=== PATIENT | female | born 1990 ===

== ENCOUNTER 2018-05-09 09:29 | Outpatient (CLI) | payer MEDICAID | END 2018-05-09 09:30 | disposition home or self-care (01) | LOC: C.LAB 09:29 | DX: Z34.92 Encounter for supervision of normal pregnancy, unspecified, second trimester (principal) ==

== ENCOUNTER 2018-07-04 12:19 | Outpatient (CLI) | payer MEDICAID | END 2018-07-04 12:20 | disposition home or self-care (01) | LOC: C.LAB 12:19 | DX: Z34.93 Encounter for supervision of normal pregnancy, unspecified, third trimester (principal) ==

== ENCOUNTER 2018-08-14 14:52 | Inpatient (IN) | payer MEDICAID ==
[2018-08-14 19:12] VITALS: BMI 34.3
--- NOTE | 2018-08-14 20:04 | OBHP ---
Datetime: 08/14/2018 19:40 IP Adm Impression: Postterm, intrauterine ; No Active Labor; Intact Membranes IP Admit Plan: Initiate labor induction protocol Pelvic Type - PN: Adequate Extremities - PN: Normal Abdomen - PN: Normal Back - PN: Normal Breast - PN: Not Done Lungs - PN: Normal Heart - PN: Normal Thyroid - PN: Normal Neurologic - PN: Normal HEENT - PN: Normal General - PN: Normal IP Hx Assessment: The History has been Reviewed and is Current EGA AdmitDate IP: 40.6 Vital Signs Provider: Reviewed IP Chief Complaint: Scheduled induction of labor Genitourinary Exam: Normal DTRs - PN: Normal
[2018-08-14] MEDS ORDERED: Lactated Ringer's 1,000 ML IV ONE (20:05)
[2018-08-14 20:40] LABS: BASO % 0.3 % (0.0-2.0); EOS # 0.1 K/uL (0.0-0.7); EOS % 0.9 % (0.0-4.0); HEMOGLOBIN 11.7 g/dL (11.0-16.0); LYMPH # 2.9 K/uL (1.0-4.3); MEAN CELL VOLUME 90.6 fL (81.0-99.0); MEAN CORPUSCULAR HEMOGLOBIN 29.5 pg (27.0-31.0); MEAN CORPUSCULAR HGB CONC 32.6 g/dL (33.0-37.0); MONO # 0.6 K/uL (0.0-0.8); MONO % 5.5 % (0.0-10.0); NEUT # 7.9 K/uL (1.8-7.0); NEUT % 68.3 % (50.0-75.0); NRBC % 0.1 % (0.0-2.0); RBC 3.95 Mil/uL (3.80-5.20); RED CELL DISTRIBUTION WIDTH 13.4 % (11.5-14.5); WHITE BLOOD COUNT 11.5 K/uL (4.8-10.8)
[2018-08-14 20:44] LABS: SQUAMOUS EPITHIAL 4 /hpf (0-5); URINE BILIRUBIN NEGATIVE (NEGATIVE); URINE BLOOD NEGATIVE (NEGATIVE); URINE CLARITY Hazy (Clear); URINE COLOR Yellow (YELLOW); URINE GLUCOSE (UA) NORMAL (Normal); URINE LEUKOCYTE ESTERASE NEG Leu/uL (Negative); URINE PROTEIN NEGATIVE (NEGATIVE); URINE UROBILINOGEN NORMAL mg/dL (0.2-1.0)
[2018-08-14 20:53] LABS: ALB/GLOB RATIO 1.2 (1.0-2.1); ALBUMIN 3.6 g/dL (3.5-5.0); ALT/SGPT 46 U/L (9-52); AST/SGOT 35 U/L (14-36); BLOOD UREA NITROGEN 5 mg/dL (7-17); CALCIUM 9.5 mg/dl (8.6-10.4); GFR NON-AFRICAN AMERICAN > 60
--- NOTE | 2018-08-14 20:58 | OBADHP ---
Datetime: 08/14/2018 19:40 Admit Comment, IP Provider: 18 yo female G1 with an IUP at 40.6 weeks and admitted for IOL for postd ates. Admits to adequate FM and denies LOF, VB or VD. Denies any problems. Pt states that s he had an US today for EFW and was told that EFW was 8lbs, 7oz. Report not available. PMHx: Denies PSHx: Denies Meds: PNV NKDA Social Hx: Denies x 3 PE: As noted above A/P 1. Postdates 2. Admitted for IOL 3. GBS Negative 4. Suspect Macrosomia 5. NST Reactive 6. Not in labor 7. Will admit for IOL 8. Orders written 9. Hope for a vaginal delivery 10. Discussed pain control with Epidural and all of their questions answered to their full satisfa ction. Pelvic Type - PN: Adequate Extremities - PN: Normal Abdomen - PN: Normal Back - PN: Normal Breast - PN: Not Done Lungs - PN: Normal Heart - PN: Normal Thyroid - PN: Normal Neurologic - PN: Normal HEENT - PN: Normal General - PN: Normal Presentation-Admit: Vertex FHR - Baseline A Provider: 130 Membranes, Provider: Intact Contraction Comments Provider: Ocassional Gestation - Est Wks by US: 40.6 IP Hx Assessment: The History has been Reviewed and is Current Vital Signs Provider: Reviewed; Within Normal Limits IP Chief Complaint: Scheduled induction of labor NICHD Variability Prov Fetus A: Moderate 6-25bpm NICHD Accel Fetus A IP Provider: 10X10 FHR Category Provider Fetus A: Category I NICHD Decel Fetus A IP Provider: None Dilatation, Provider: 1 Effacement, Provider: 50 Station, Provider: -3 Genitourinary Exam: Normal DTRs - PN: Normal EGA AdmitDate IP: 40.6 IP Adm Impression: Postterm, intrauterine ; No Active Labor; Intact Membranes IP Admit Plan: Admit to unit; Initiate labor induction protocol
[2018-08-15] MEDS: Lactated Ringer's 1,000 ML IV SCH ×2 (05:00→05:29)
--- NOTE | 2018-08-15 09:45 | OBPN ---
Datetime: 08/15/2018 09:12 IP Progress Impression: Reassuring heart rate IP Informed Consent Obtain: Vaginal Delivery IP Procedures: Sterile Vag Exam IP Progress Plan: Induction; Anticipate Vaginal Delivery Membranes, Provider: Ruptured Contraction Comments Provider: Irregular FHR - Baseline A Provider: 130 Gestation - Est Wks by US: 41.0 Presentation-Admit: Vertex IP Progress Note Comment: Pt seen and examined tracing reassuring VSS, Afebrile Cervidil removed Pt requesting to be able to walk, shower and eat/Orders done Admitting labs WNL/ O+ Will start Pitocin Anticipate a vaginal delivery Requesting an Epidural when in a lot of pain Vital Signs Provider: Reviewed; Within Normal Limits NICHD Accel Fetus A IP Provider: 10X10 FHR Category Provider Fetus A: Category I NICHD Variability Prov Fetus A: Moderate 6-25bpm Dilatation, Provider: 2 Effacement, Provider: 70 Station, Provider: -3 NICHD Decel Fetus A IP Provider: None
[2018-08-15] MEDS ORDERED: Oxytocin 30 UNIT in NS 500 ml 30 UNITS/500 ML BAG IV SCH (10:30)
[2018-08-15] MEDS ORDERED: Oxytocin 30 UNIT in NS 500 ml 30 UNITS/500 ML BAG IV ONE (10:45)
[2018-08-15] MEDS ORDERED: Fentanyl/Bupivacaine HCl 250 ML EPI ONE (11:01)
[2018-08-15] MEDS ORDERED: Oxytocin 20 units in LR 2,000 ML IV ONE (15:46)
[2018-08-15] MEDS ORDERED: Sodium Citrate/Citric Acid 15 ml Sol ONE (15:46)
[2018-08-15] MEDS ORDERED: Lactated Ringer's 1,000 ML IV ONE (15:47)
[2018-08-15] MEDS ORDERED: Sodium Citrate/Citric Acid 15 ml Sol PO ONE (15:47)
[2018-08-15] MEDS ORDERED: cefOXitin IV 2 gm in Dextrose 2 GM/50 ML BAG IVPB ONE (16:00)
--- NOTE | 2018-08-15 16:09 | OBPN ---
Datetime: 08/15/2018 14:00 IP Progress Impression Other: Variable Deccelerations IP Progress Impression: Arrest of dilatation/descent IP Informed Consent Obtain: Vaginal Delivery IP Procedures: Intrauterine Pressure Catheter; Scalp Electrode; Sterile Vag Exam; Sterile Spec ulum Exam IP Progress Plan: Continue present management; Induction; Anticipate Vaginal Delivery Membranes, Provider: Ruptured Amniotic Fluid Color, Provider: Clear Contraction Comments Provider: Q 3-4 mins FHR - Baseline A Provider: 130 Gestation - Est Wks by US: 41.0 Presentation-Admit: Vertex IP Progress Note Comment: Pt seen and examined Spontaneous ROM with clear fluid IUPC, ISL placed with ease Uterine contractions Q 3-4 with Pitocin at 8 mU/min Minimal cervical change but no descent Will continue Present Management for now Pt and Her aware of possible need for CS delivery since we are dealing with most likely Fe savanna Macrosomia and they verbalized understanding Vital Signs Provider: Reviewed; Within Normal Limits NICHD Accel Fetus A IP Provider: 10X10 NICHD Variability Prov Fetus A: Moderate 6-25bpm Dilatation, Provider: 2 Effacement, Provider: 80 Station, Provider: -3 NICHD Decel Fetus A IP Provider: None
[2018-08-15] MEDS ORDERED: Lidocaine 2% MPF (5 ml) Inj ONE ×2 (16:22→16:28)
[2018-08-15] MEDS ORDERED: ePHEDrine 50 mg/ml Inj ONE (16:27)
--- NOTE | 2018-08-15 16:45 | OBPN ---
Datetime: 08/15/2018 16:00 IP Progress Impression Other: Variable Deccelerations IP Progress Impression: Arrest of dilatation/descent; Rupture of membranes IP Informed Consent Obtain: Section Delivery IP Progress Plan: Deliver- Section Membranes, Provider: Ruptured Contraction Comments Provider: 3-4 minutes FHR - Baseline A Provider: 130 Gestation - Est Wks by US: 41.0 Presentation-Admit: Vertex IP Progress Note Comment: Pt seen and examined No cervical change Variable Deccelerations Arrest of Descent Macrosomia Again discussed with patient and her regarding the need to deliver by C/S at this time. Pr ocedure, risks and possible complications were fully reviewed with the patient and she verbalized und erstanding, requested to proceed and signed the consent. Vital Signs Provider: Reviewed; Within Normal Limits NICHD Accel Fetus A IP Provider: 15X15 NICHD Variability Prov Fetus A: Moderate 6-25bpm Dilatation, Provider: 3 Effacement, Provider: 80 Station, Provider: -3 NICHD Decel Fetus A IP Provider: Variable (Annotations: Data stored by CPN on behalf of user)
[2018-08-15] MEDS ORDERED: Morphine 1 mg/ml preservative-free Inj(Duramorph) ONE (17:07)
[2018-08-15] MEDS ORDERED: Midazolam 2 MG/2 ML VIAL ONE ×2 (17:14→17:30)
--- NOTE | 2018-08-15 18:42 | OBDS ---
DELIVERY PERSONNEL Delivery Doctor: Ruben Thurston DO Scrub Nurse: Rivka Marshall Body Art Technician: Ana Oswald RN Anesthesiologist: Mary PORTILLO MATERNAL INFORMATION Delivery Anesthesia: Epidural Medications in Delivery: Pitocin Estimated Blood Loss (ml): 600 Placenta Cultured: No Maternal Complications: None RN Comments: Carmen. C/section to a live baby boy attended to by dr. Everett and Marcia Dai Rn, 8:9, grunting. Baby transfered to nursery after bonding with both parents. Provider Comments: Primary LTC Section secondary to Arrest of Descent, Macrosomia wit h delivery of a viable male after reducing a loose CNC x1. Apgars 8_9 and BW 8lbss, 12 oz. Cord Blood and cord pH obtained and sent Placenta with 3 vessel cord manually removed and discarded. EBL 600 mls Complications None Patient and tolerated the procedure well and left the OR in Stable and Satisfactory condit ion. Asistant Dr. Moss from beginning to end of the procedure As400 Operator. Dr. Everett LABOR SUMMARY EDC: 08/08/2018 00:00 No. Babies in Womb: 1 Attempted: No Labor Anesthesia: Epidural LABOR INFORMATION Reason for Induction: Postterm Cervical Ripening Agents: Cervidil Oxytocin: Induction Group B Beta Strep: Negative (Annotations: 07/11/2018) Antibiotics # of Doses: 1 Antibiotics Time of Last Dose: 08/15/18 Steroids Given: None Reason Steroids Not Administered: Not Applicable MEMBRANES Membranes Rupture Method: Spontaneous Rupture of Membranes: 08/15/2018 12:52 Length of Rupture (hrs): 4.00 Amniotic Fluid Color: Clear Amniotic Fluid Amount: Moderate Amniotic Fluid Odor: Normal STAGES OF LABOR Stage 3 hrs: 0 Stage 3 min: 1 CSECTION DELIVERY Primary Indication: Secondary Arrest of Dilatation Other Primary Indication: Macrosomia Secondary Indication: Failed Induction CSection Urgency: Elective CSection Incidence: Primary Labor: Labor Elective: Elective CSection Incision: Lower Uterine Transverse BABY A INFORMATION Delivery Date/Time: 08/15/2018 16:52 Method of Delivery: Born in Route : No : N/A Forceps: N/A Vacuum Extraction: N/A Shoulder Dystocia : No SHOULDER DYSTOCIA BABY A Infant Delivery Date/Time: 08/15/2018 16:52 PRESENTATION/POSITION BABY A Presentation: Cephalic Cephalic Presentation: Vertex Vertex Position: Left Occipital Anterior Breech Presentation: N/A PLACENTA INFORMATION BABY A Placenta Delivery Time : 08/15/2018 16:53 Placenta Method of Delivery: Manual Removal Placenta Status: Delivered SCORES BABY A Heart Rate 1 min: >100 bpm Resp Effort 1 min: Slow, Irregular Reflex Irritability 1 min: Cough or Sneeze or Pulls Away Muscle Tone 1 min: Active Motion Color 1 min: Body Wallace, Extremities Blue SCORE 1 MIN: 8 Heart Rate 5 min: >100 bpm Resp Effort 5 min: Good Cry Reflex Irritability 5 min: Cough or Sneeze or Pulls Away Muscle Tone 5 min: Active Motion Color 5 min: Body Wallace, Extremities Blue SCORE 5 MIN: 9 INFORMATION BABY A Gestational Age at Delivery: 41.0 Gestational Status: Term Outcome : Liveborn Condition : Stable Infant Sex: Male IDENTIFICATION/MEDS BABY A ID Band Number: [id number] Sensor Number: [id number] WEIGHT/LENGTH BABY A Infant Birthweight (gms): 3960 Infant Weight (lb): 8 Infant Weight (oz): 12 Infant Length Inches: 19.25 Infant Length cms: 48.9 CORD INFORMATION BABY A No. Cord Vessels: 3 Nuchal Cord : Around Neck x1, Loose Nuchal Cord Other: n/a True Knot: 0 Cord Blood Taken: Yes Banking/Donate Info: n/a Suction: Mouth; Nose ASSESSMENT BABY A Complications: None Physical Findings at Delivery: Within Normal Limits Infant Respirations: Appears Normal; Grunting Field Research Assistant/ALS Called : No Infant Care By: Dr. Everett and Marcia Dai Rn Transferred To: [facility]
[2018-08-15] MEDS: Simethicone 80 mg Chewtab PO SCH (21:55)
[2018-08-16 07:59] LABS: HEMOGLOBIN 10.4 g/dL (11.0-16.0); MEAN CELL VOLUME 90.8 fL (81.0-99.0); MEAN CORPUSCULAR HEMOGLOBIN 30.4 pg (27.0-31.0); MEAN CORPUSCULAR HGB CONC 33.5 g/dL (33.0-37.0); MEAN PLATELET VOLUME 9.8 fL (7.2-11.7); RBC 3.43 Mil/uL (3.80-5.20); RED CELL DISTRIBUTION WIDTH 13.8 % (11.5-14.5); WHITE BLOOD COUNT 13.1 K/uL (4.8-10.8)
[2018-08-16] MEDS: Prenatal Multivit/Folic Acid/Iron Tab PO SCH (09:05)
[2018-08-16] MEDS: Simethicone 80 mg Chewtab PO SCH ×4 (09:05→21:12)
--- NOTE | 2018-08-16 09:50 | OBPPN ---
Datetime: 08/16/2018 09:43 PP Nausea Prov: Denies PP Flatus Prov: No PP BM Prov: No PP Breasts Prov: Not Done PP Heart Prov: Normal PP Lungs Prov: Normal PP Abdomen/Uterus Prov: Normal PP Lochia Prov: Normal PP Vulva/Perineum Prov: Not Done PP CVA Tenderness Prov: Normal PP Extremities Prov: Normal PP C/S Incision Prov: Normal PP Progress Prov: Normal PP Comments Phys Exam Prov: Fundus firm and non-tender Incision clean and dry PP Impression Prov: Normal progression PP Plan Prov: Continue present management; consult PP Progress Note Prov: Pt seen and examined POD # 1 S/P Primary C/S for Arrest of Descent and Macrosomia H_H today 10.4/31.2 Counseled re pain control, ambulation, po water intake, Stable and Satisfactory condition and recovery Advance care IP PP Procedures: None
[2018-08-16] MEDS: Oxycodone/Acetaminophen 5/325 mg Tab PO PRN (18:32)
[2018-08-17] MEDS: Oxycodone/Acetaminophen 5/325 mg Tab PO PRN (03:16)
[2018-08-17] MEDS: Simethicone 80 mg Chewtab PO SCH ×4 (09:20→21:59)
[2018-08-17] MEDS: Prenatal Multivit/Folic Acid/Iron Tab PO SCH (09:20)
--- NOTE | 2018-08-17 10:31 | OBPPN ---
Datetime: 08/17/2018 10:26 PP Nausea Prov: Denies PP Flatus Prov: Yes PP Breasts Prov: Normal PP Heart Prov: Normal PP Lungs Prov: Normal PP Abdomen/Uterus Prov: Normal PP Lochia Prov: Normal PP Vulva/Perineum Prov: Normal PP CVA Tenderness Prov: Normal PP Extremities Prov: Normal PP C/S Incision Prov: Normal PP Progress Prov: Normal PP Comments Phys Exam Prov: INCISION: C/D/I PP Impression Prov: Normal progression PP Plan Prov: Continue present management PP Progress Note Prov: PT IS DOING WELL CURRENTLY NO COMPLAINTS. TOLERATING PO DIET, AMBULATING, ANTHONY N 07/31. VSS: AFEBRILE HGBS: 10.4 EXT: NO EDEMA - 20 S/P C/S POST OP DAY #2 - VSS: AFEBRILE - AMBULATING - TOLERATIG PO DIET. - ROUTINE POST OP CARE. Vital Signs Provider PP: Reviewed; Within Normal Limits
[2018-08-18 07:35] VITALS: BP 103/71; PULSE 68; TEMP 97; O2SAT 98
[2018-08-18] MEDS: Prenatal Multivit/Folic Acid/Iron Tab PO SCH (10:18)
[2018-08-18] MEDS: Simethicone 80 mg Chewtab PO SCH ×2 (10:18→16:51)
[2018-08-18 21:23] VITALS: RESP 18
--- NOTE | 2018-08-21 21:28 | OP ---
PROCEDURE DATE: 08/15/2018 PREOPERATIVE DIAGNOSES: 1. A 28-year-old female, 1, para 0 with intrauterine at 40.6 weeks. 2. Induction of labor for post dates. 3. Suspected microsomia. 4. Arrest of descent/failed induction. POSTOPERATIVE DIAGNOSES: 1. A 28-year-old female, 1, para 0 with intrauterine at 40.6 weeks. 2. Induction of labor for postdates. 3. Suspected microsomia. 4. Arrest of descent/failed induction. 5. microsomia. 6. Cervical nuchal cord x1. PROCEDURE: Primary low-transverse cervical section with delivery of a viable male from BUDDY position and after reducing a loose cervical nuchal cord x1. The Apgars were 8 and 9 at 1 and 5 minutes respectively, and weight was 8 pounds 12 ounces. SURGEON: Sanaz Thurston DO PEAR PICKER: Walter Moss MD ANESTHESIOLOGIST: Caitlyn Grossman MD COPY OPERATOR: Molly Everett MD ANESTHESIA: Epidural. INDICATIONS FOR SURGERY: As I stated above, the patient was admitted for induction of labor for post date, and after several hours, arrest of descent was diagnosed and we were suspecting a microsomia. So, a section delivery was recommended at this time. FINDINGS: As stated above, there was a loose cervical nuchal chord x1. There was definitely microsomia. Bilateral tubes and ovaries were within normal limits. SPECIMEN: 1. Cord blood and cord pH were obtained and sent. 2. Placenta with three-vessel cord, which was discarded. ESTIMATED BLOOD LOSS: 600 mL. COMPLICATIONS: None. PREOPERATIVE NOTE: The procedure, the risks and the possible complications were fully reviewed with the patient to include but not exclusively hemorrhage, infection or injury to bowel, bladder, bilateral tubes and ovaries, internal blood vessels or any other internal organs. The patient verbalized understanding and requested to proceed and signed the consent. DESCRIPTION OF PROCEDURE: The patient was taken to the operating room, she was given a spinal form of anesthesia, and she was sterilely prepped and draped in the usual manner for the above named procedure. The Boles catheter was inserted. A time-out was then carried out as indicated, and after ascertaining an adequate level of anesthesia, the procedure was initiated. The knife was utilized to make a low transverse skin incision in the suprapubic area, and utilizing the Pfannenstiel technique, the abdomen was entered. The bladder flap was developed and placed underneath the Lauren blade. The second knife was the utilized to make a low transverse uterine incision in the lower uterine segment, and it was extended horizontally with bandage scissors. The infant was noted to be OP and then delivered from the BUDDY position. The bulb syringe was utilized to suction the naso and the oropharynx upon delivery of the head and upon completion of the delivery, which was carried out without difficulty. The cord was doubly clamped and transected, and the infant was passed to the manager welding in attendance for further inspection. The cord blood and the cord pH were obtained and sent and the placenta was spontaneously delivered and sent to Pathology. The uterus was exteriorized through the abdominal incision. The endometrial cavity was cleansed with a moist lap and the uterine incision was the closed utilizing a PDS suture in a full-thickness manner with an adequate closure and adequate hemostasis. Bilateral tubes and ovaries were noted to be within normal limits, and after cleaning the cul-de-sac of blood clots, the uterus was repositioned into the abdominal cavity. Bilateral gutters were also cleansed, and after ascertaining adequate hemostasis at the uterine incision, we proceeded to close the abdomen in layers. The rectus muscle was reapproximated in the midline with a few interrupted sutures of 0 Vicryl and incorporating the peritoneum. The fascia was closed with PDS and the skin was closed with the chin. Sterile dressing was applied, and after evacuating the vagina of blood clots, the procedure was terminated. All instruments and sponges were accounted for x3. The patient and the tolerated the procedure well and they both left the operating room in stable and satisfactory condition. Sanaz Thurston DO
== END 2018-08-18 17:21 | disposition home or self-care (01) | DRG 540 ==
LOC: C.4D 19:08 → UNDOADMIN 19:08 → C.4D 19:12 → C.4M 08-15 20:00
PROVIDERS: ADMIT Obstetrics & Gynecology; ATTEND Obstetrics & Gynecology
PROC: 3E0P7VZ Introduction of Hormone into Female Reproductive, Via Natural or Artificial Opening (ICD-10-PCS; 2018-08-14)
PROC: 10D00Z1 Extraction of Products of Conception, Low, Open Approach (ICD-10-PCS; principal; 2018-08-15)
DX: O48.0 Post-term pregnancy (principal); O61.9 Failed induction of labor, unspecified; O62.1 Secondary uterine inertia; O36.63X0 Maternal care for excessive fetal growth, third trimester, not applicable or unspecified; O69.81X0 Labor and delivery complicated by cord around neck, without compression, not applicable or unspecified; Z3A.40 40 weeks gestation of pregnancy; Z37.0 Single live birth